=== PATIENT | female | born 1950 | race Caucasian/White ===

== ENCOUNTER 2016-11-18 12:34 | Emergency (ER) | payer OTHER | END 2016-11-18 14:25 | disposition home or self-care (01) | LOC: ER1 12:34 | DX: S20.211A Contusion of right front wall of thorax, initial encounter (principal); F17.210 Nicotine dependence, cigarettes, uncomplicated; E11.8 Type 2 diabetes mellitus with unspecified complications; Z79.84 Long term (current) use of oral hypoglycemic drugs; Z88.0 Allergy status to penicillin; Z88.1 Allergy status to other antibiotic agents; Z90.710 Acquired absence of both cervix and uterus; W51.XXXA Accidental striking against or bumped into by another person, initial encounter | CPT/HCPCS: 71101; 99284 ==